=== PATIENT | male | born 1990 | race Caucasian/White ===

== ENCOUNTER 2018-12-05 14:49 | Emergency (ER) | payer OTHER ==
[~2018-12-05] VITALS: Ht 185.1 cm; Wt 124.1 kg
[~2018-12-05 14:49] MED LIST: HYDR-1231 PO; ONDA-42 SL; SULF1TAB38 PO; TRM50T PO
--- NOTE | 2018-12-05 15:14 | ED Abdominal Pain ---
General Chief Complaint: Abdominal/GI Problems Stated Complaint: HERNIA Nursing Triage Note: TO ED REPORTS THAT THINKS HE MAY HAVE A HERNIA HAD AREA IN [place] THAT WAS SWOLLEN TODAY WOKE UP AND HAD BLOOD IN [place]. Sepsis Screen: No Definite Risk Source of Information: Patient Exam Limitations: No Limitations (BRISA CAVANAUGH STUDENT) History of Present Illness Date Seen by Provider: Dec 05, 2018 Time Seen by Provider: 15:05 Initial Comments Patient presents to the ED today with complaints of periumbilical pain that began yesterday. He stated he was not doing anything strenuous, but felt a little "balloon" type of tissue that felt full of fluid and was causing him pain. The patient believed it was a hernia. He woke up this morning to find that the piece of tissue was no longer there, but his umbilicus was filled with blood and puss, leading him to believe that he had ruptured a hernia. His umbilicus is very tender to touch, but the pain does not radiate anywhere. Location Injury Occurred: Home Timing/Duration: 24 Hours Severity/Quality: Mild Location: Periumbilical Radiation: No Radiation Activities at Onset: None Modifying Factors: Improves With Resting, Improves With Other (Avoid touch or palpation) Associated Symptoms: Denies Symptoms (BRISA CAVANAUGH STUDENT) Initial Comments Reported that he thought there may have been a tick like structure in his belly button area. He did put antibiotic ointment over the top of the area 2 days ago and yesterday noted the tissue appearance or appearance of the tech and then this morning the blood and purulence. Pain seems to be just inside the bellybutton. No swelling reported otherwise and no pain in the belly overall. Timing/Duration: 1-2 Days Severity/Quality: Mild Location: Other (within the umbilicus) Radiation: No Radiation Activities at Onset: None Associated Symptoms: Denies Symptoms (CARLOZ RODRIGUEZ MD) Allergies and Home Medications Allergies Coded Allergies: No Known Drug Allergies (Unverified , 03/21/13) Home Medications Ondansetron Hcl 4 Mg Tab, 4 MG SL Q4H FOR NAUSEA AND VOMITING Prescribed by: YURIDIA ISLAS on 03/21/13 3023 Tramadol Hcl 50 Mg Tab, 50 MG PO Q4-6HR PRN for PAIN FOR PAIN Prescribed by: YURIDIA ISLAS on 03/21/13606 Trimethoprim/Sulfamethoxazole 1 Ea Tablet, 2 EA PO BID FOR INFECTION Prescribed by: YURIDIA Zavala ROSHAN on 03/21/13606 Patient Home Medication List Home Medication List Reviewed: Yes (CARLOZ RODRIGUEZ MD) Review of Systems Review of Systems Constitutional: no symptoms reported EENTM: No Symptoms Reported Respiratory: No Symptoms Reported Cardiovascular: No Symptoms Reported Gastrointestinal: See HPI Genitourinary: No Symptoms Reported Musculoskeletal: no symptoms reported Skin: see HPI Psychiatric/Neurological: No Symptoms Reported Endocrine: No Symptoms Reported Hematologic/Lymphatic: No Symptoms Reported (BRISA CAVANAUGH) Constitutional: No chills, No fever Respiratory: No Symptoms Reported Cardiovascular: No Symptoms Reported Gastrointestinal: Denies Nausea, Denies Vomiting Musculoskeletal: no symptoms reported (CARLOZ RODRIGUEZ MD) Past Fobgvsu-Tfkusu-Iwnbvi Hx Past Med/Social Hx: Reviewed Nursing Past Med/Soc Hx (CARLOZ RODRIGUEZ MD) Patient Social History Alcohol Use: Occasionally Uses Alcohol Beverage of Choice: Beer, Whiskey Recreational Drug Use: No Smoking Status: Never a Smoker Recent Foreign Travel: No Contact w/Someone Who Travel: No Recent Infectious Disease Expo: No Physical Abuse: No Sexual Abuse: No (BRISA CAVANAUGH) Immunizations Up To Date Tetanus Booster (TDap): More than 5yrs (BRISA CAVANAUGH) Past Medical History Surgeries: No Respiratory: No Cardiac: No Neurological: No Reproductive Disorders: No Sexually Transmitted Disease: No Gastrointestinal: No Musculoskeletal: No Endocrine: No Cancer: No Psychosocial: No Integumentary: No Blood Disorders: No (BRISA CAVANAUGH) Family Medical History Reviewed Nursing Family Hx (CARLOZ RODRIGUEZ MD) Physical Exam Vital Signs Vital Signs - First Documented 12/05/18 14:50 Temp 35.3 Pulse 87 Resp 18 B/P (MAP) 132/94 (107) Pulse Ox 98 O2 Delivery Room Air (CARLOZ RODRIGUEZ MD) Vital Signs Capillary Refill : Less Than 3 Seconds (BRISA CAVANAUGH) Height/Weight/BMI Height: 6'1" Weight: 200lbs. oz. [id number]; 36.00 BMI Method:Stated General Appearance: WD/WN, mild distress (When palpating inside the umbilicus) HEENT: PERRL/EOMI, pharynx normal Respiratory: chest non-tender, lungs clear, normal breath sounds, no respiratory distress, no accessory muscle use Cardiovascular: normal peripheral pulses, regular rate, rhythm, no edema, no gallop, no JVD, no murmur Peripheral Pulses: 2+ Dorsalis Pedis (R), 2+ Left Dors-Pedis (L), 2+ Radial Pulses (R), 2+ Radial Pulses (L) Gastrointestinal: normal bowel sounds, soft, no organomegaly, no pulsatile mass, tenderness (At the umbilicus) Extremities: non-tender, normal inspection, no pedal edema, no calf tenderness Back: normal inspection, no CVA tenderness, no vertebral tenderness Neurologic/Psychiatric: alert, normal mood/affect, oriented x 3 Skin: normal color, warm/dry Lymphatic: no adenopathy (BRISA CAVANAUGH PA STUDENT) General Appearance: WD/WN, no apparent distress Respiratory: lungs clear, normal breath sounds Cardiovascular: regular rate, rhythm, no murmur Gastrointestinal: soft; No distended; tenderness (At the umbilicus); No mass, No hepatomegaly Extremities: non-tender, normal inspection Lymphatic: no adenopathy (CARLOZ RODRIGUEZ MD) Progress/Results/Core Measures Results/Orders My Orders Orders - CARLOZ RODRIGUEZ MD Wound Culture (12/05/18 15:10) (CARLOZ RODRIGUEZ MD) Vital Signs/I&O 12/05/18 14:50 Temp 35.3 Pulse 87 Resp 18 B/P (MAP) 132/94 (107) Pulse Ox 98 O2 Delivery Room Air (CARLOZ RODRIGUEZ MD) Blood Pressure Mean: 107 POS Progress Progress Note : Progress Note Seen and evaluated. Wound culture of umbilicus obtained. We did discuss multiple options including imaging if needed. He has no lymphadenopathy and no abdominal pain and I believe this is likely superficial cellulitis/wound. We will treat conservative currently with topical antibiotics and oral antibiotics with the understanding that if he is not improved/resolved within one week, he will return for further evaluation including imaging if indicated. Patient agreed. We did discuss this is a wound versus lymph node versus other sentinel node including sentinel node for cancer. Overall it appears likely that this is just local inflammation and infection. Discharged home with return precautions. Patient verbalize understanding of instructions and agrees to return for further evaluation if not improved. (CARLOZ RODRIGUEZ MD) Departure Impression Primary Impression: Open wound of umbilical region without complication Qualified Codes: S31.105A - Unspecified open wound of abdominal wall, periumbilic region without penetration into peritoneal cavity, initial encounter Disposition: HOME, SELF-CARE Condition: Improved Departure-Patient Inst. Decision time for Depature: 15:34 (CARLOZ RODRIGUEZ MD) Referrals: NO,LOCAL PHYSICIAN (PCP/Family) Primary Care Physician Patient Instructions: Cellulitis (Skin Infection), Adult (DC) Add. Discharge Instructions: All discharge instructions reviewed with patient and/or family. Voiced understanding. Take medications as directed. You may use topical antibiotic to area of wound in the bellybutton once or twice daily as needed. Continue to keep wound clean otherwise. Return for worse pain, swelling, nodular structures on or around the bellybutton, pain in the abdomen or other concerns as needed. Scripts Sulfamethoxazole/Trimethoprim (Sulfamethoxazole-Tmp Ds Tablet) 1 Each Tablet 1 EACH PO BID, #14 TAB 0 Refills Prov: CARLOZ RODRIGUEZ MD 12/05/18 BRISA CAVANAUGH STUDENT Dec 05, 2018 15:14 CARLOZ CHAPPELL MD Dec 05, 2018 15:35 POS
[2018-12-05] MEDS ORDERED: SULF-222 PO (15:37)
[2018-12-05 15:47] VITALS: BP 132/94
== END 2018-12-05 15:47 | disposition home or self-care (01) ==
LOC: EDUNIT# 14:49 → ER 14:49
DX: S31.105A Unspecified open wound of abdominal wall, periumbilic region without penetration into peritoneal cavity, initial encounter (principal); X58.XXXA Exposure to other specified factors, initial encounter
CPT/HCPCS: 87070; 87205; 99282